=== PATIENT | male | born 1965 | race Caucasian/White ===

== ENCOUNTER 2024-08-06 14:42 | Emergency (ER) | payer OTHER, SELFPAY ==
[2024-08-06] VITALS (18 sets, daily range): BP systolic 122–153; BP diastolic 82–95; PULSE 87–113; RESP 12–21; TEMP 36.7; O2SAT 92–99
--- NOTE | ~2024-08-06 | XR_ITS ---
XR chest 2V DATE: 08/06/2024 15:00 INDICATION: Chest pain, palpitations TECHNIQUE: PA and lateral views COMPARISON: None FINDINGS: Normal heart size. No hilar or mediastinal enlargement. Aortic arch calcification. No pulmo nary infiltrate or consolidation, pleural effusion or pulmonary vascular congestion or pneumothorax. Included skeletal structures are unremarkable. IMPRESSION: No active cardiopulmonary disease Aortic atherosclerosis Reviewed, dictated and finalized at location A.
--- NOTE | 2024-08-06 14:48 | ECG_ITS ---
Test Date: 2024-08-06 14:50:45 Measurements Intervals [place] Rate: 106 P: 22 MA: 153 QRS: 41 QRSD: 88 T: 42 QT: 330 QTc: 439 Interpretive Statements SINUS TACHYCARDIA NONSPECIFIC ST-T WAVE ABNORMALITY- DIFFUSE LEADS BASELINE ARTIFACT- II, III ABNORMAL ECG No previous ECG available for comparison Electronically Signed On 08-06-2024 20:35:25 CDT by Celso Renner D.O.
--- NOTE | 2024-08-06 15:20 | ED.ARRPALP ---
HPI - Arrhythmia/Palpitations General Chief Complaint: Arrhythmia/Palpitations Stated Complaint: palpatations Time Seen by Provider: 08/06/24 14:50 History of Present Illness HPI narrative: Patient is a 59-year-old male who reports to the ER after feeling as though his heart rate was irregular. He reports he cut the grass earlier today. Patient reports he started feeling an intermittent irregular heart rate during that time. He went inside, took a shower, and laid down for a nap. Patient reports he continued to feel the irregular heart rate while resting and when he got up. Patient reports has not had their regular heart rate for the past 20 minutes. He reports a history of hyperlipidemia and back pain. Patient denies chest pain, shortness of breath, or other signs of illness. Related Data Allergies Allergy/AdvReac Type Severity Reaction Status Date / Time No Known Allergies Allergy Verified 08/06/24 15:36 Review of Systems Review of Systems: All systems reviewed & are unremarkable except as noted in HPI and below Exam Narrative: GENERAL: Well appearing, well-nourished, non-toxic, in no acute distress. HEAD: Normocephalic, atraumatic. NECK: Supple. No adenopathy, no masses. RESPIRATORY: Airway patent, respirations nonlabored. Clear to auscultation bilaterally, no rales, rhonchi, wheezing. CARDIOVASCULAR: Regular rate and rhythm without murmurs, rubs, or gallops. Peripheral pulses 2+ and equal bilaterally. ABDOMINAL: Soft, nontender, nondistended, no hepatosplenomegaly. Normoactive BS. MUSCULOSKELETAL: Moves all extremities. Strength/ROM intact without gross deformities. SKIN: Warm, dry, normal color. No rashes. NEURO: A&O X3. Speech clear. Cranial nerves II-XII grossly intact. Steady gait. No ataxic movements. PSYCHIATRIC: Appropriate mood and affect. Normal interaction. Course Vital Signs Vital signs: Vital Signs Temperature 36.7 C 08/06/24 14:56 Pulse Rate 107 H 08/06/24 14:56 Respiratory Rate 17 08/06/24 14:56 Blood Pressure 153/82 H 08/06/24 14:56 Pulse Oximetry 96 08/06/24 14:56 Oxygen Delivery Room Air 08/06/24 14:56 Temperature 36.7 C 08/06/24 14:56 Pulse Rate 87 08/06/24 17:26 Respiratory Rate 19 08/06/24 17:26 Blood Pressure 122/89 08/06/24 17:26 Pulse Oximetry 99 08/06/24 17:26 Oxygen Delivery Room Air 08/06/24 15:00 MDM - Arrhythmia/Palpitations MDM Narrative Medical decision making narrative: Patient is a 59-year-old male who reports to the ER after feeling as though his heart rate was irregular. He reports he cut the grass earlier today. Patient reports he started feeling an intermittent irregular heart rate during that time. He went inside, took a shower, and laid down for a nap. Patient reports he continued to feel the irregular heart rate while resting and when he got up. Patient reports has not had their regular heart rate for the past 20 minutes. He reports a history of hyperlipidemia and back pain. Patient denies chest pain, shortness of breath, or other signs of illness. Patient's physical examination is unremarkable. His blood work indicates patient is mildly dehydrated. Will give him 1L normal saline IV bolus and reexamine patient after intervention. Differential Diagnosis Differential diagnosis: Likely palpitations, artial fibrillation, artial flutter and supraventricular tachycardia Lab Data Attestation: I reviewed the patient's lab results. 08/06/24 15:36 08/06/24 15:36 Labs: Lab Results 08/06/24 08/06/24 08/06/24 Range/Units 15:36 17:17 18:03 WBC 12.6 H (4.5-10.0) K/mm3 RBC 5.12 (4.6-6.20) M/mm3 Hgb 15.4 (14.0-18.0) g/dL Hct 44.6 (42.0-52.0) % MCV 87.1 (80-100) fl MCH 30.1 (26-34) pg MCHC 34.5 (32-36) g/dl RDW 13.3 (11.5-14.5) % Plt Count 208 (150-375) k/mm3 MPV 10.9 H (7.4-10.4) fl Immature Gran % (Auto) 0.3 (0-0.5) % Neut % (Auto) 68.4
[2024-08-06 15:43] LABS: Basophils Absolute Auto 0.1 K/mm3 (0.0-0.1); Basophils Percent Auto 0.7 % (0.2-1.2); Eosinophils Absolute Auto 0.2 K/mm3 (0-0.3); Eosinophils Percent Auto 1.7 % (0-4.4); Hematocrit 44.6 % (42.0-52.0); Hemoglobin 15.4 g/dL (14.0-18.0); Immature Granulocyte Absolute 0.04 K/mm3 (0.00-0.031); Immature Granulocyte Percent A 0.3 % (0-0.5); Lymphocytes Absolute Auto 2.74 K/mm3 (0.9-3.2); Lymphocytes Percent Auto 21.7 % (18.3-44.2); Mean Corpuscular HGB Conc 34.5 g/dl (32-36); Mean Corpuscular Hemoglobin 30.1 pg (26-34); Mean Corpuscular Volume 87.1 fl (80-100); Mean Platelet Volume 10.9 fl (7.4-10.4); Monocytes Absolute Auto 0.9 K/mm3 (0.1-0.6); Monocytes Percent Auto 7.2 % (2.6-8.5); Neutrophils Absolute Auto 8.7 K/mm3 (1.3-6.7); Neutrophils Percent Auto 68.4 % (45.5-73.1); Platelet Count Result 208 k/mm3 (150-375); Red Blood Count 5.12 M/mm3 (4.6-6.20); Red Cell Distribution Width 13.3 % (11.5-14.5); White Blood Count 12.6 K/mm3 (4.5-10.0)
[2024-08-06 15:53] LABS: Prothrombin Time 13.6 Seconds (11.1-14.7)
[2024-08-06 15:54] LABS: Partial Thromboplastin Time 26.1 Seconds (22.3-36.8)
[2024-08-06 15:55] LABS: Alanine Aminotransferase 35 U/L (6-50); Albumin Level 4.5 g/dL (3.5-5.1); Alkaline Phosphatase 80 U/L (38-126); Anion Gap 11 mmol/L (4-12); Aspartate Amino Transferase 36 U/L (17-59); Bilirubin,Total 0.7 mg/dL (0.2-1.3); Blood Urea Nitrogen 21 mg/dL (9-20); Calcium 9.4 mg/dL (8.4-10.2); Carbon Dioxide 26 mmol/L (22-30); Chloride 100 mmol/L (98-107); Estimated CRCL calculation 51 ml/min; Estimated Glomerular Filt Rate 52; Glucose 110 mg/dL (65-110); Lipase 124 U/L (23-300); Potassium 3.6 mmol/L (3.4-5.0); Sodium 137 mmol/L (137-145)
[2024-08-06 16:06] LABS: Troponin I < 0.012 ng/mL (0.000-0.034)
[2024-08-06] MEDS: SODIUM CHLORIDE 0.9% IV 1,000 ML 999 ML IV CONT (17:22)
[2024-08-06 17:28] LABS: Add Urine Microscopic? YES; Appearance Urine Cloudy (Clear); Bacteria Urine None Seen /hpf; Bilirubin Urine Negative (Negative); Blood Urine Negative (Negative); Color Urine Yellow (Yellow); Glucose Urine UA Negative (Negative); Ketones Urine Negative (Negative); Leukocyte Esterase Ur Negative LEU/UL (Negative); Nitrate Urine Negative (Negative); Non Pathogenic Casts 0-2; Protein Urine Negative (Negative); RBC Urine 0-2 /hpf (0-2); Specific Grav Ur 1.021 (1.001-1.035); Squamous Epithelial Cell Urine None Seen /hpf (Few); Urobilinogen Urine 0.2 mg/dL (<2.0); WBC Urine 0-5 /hpf (0-3)
[2024-08-06 18:32] LABS: Troponin I < 0.012 ng/mL (0.000-0.034)
== END 2024-08-06 18:51 | disposition home or self-care (01) ==
PROVIDERS: Emergency Medicine; Emergency Provider Registered Nurse
DX: R00.2 Palpitations (principal); E86.0 Dehydration; I70.0 Atherosclerosis of aorta; R00.0 Tachycardia, unspecified; R94.31 Abnormal electrocardiogram [ECG] [EKG]
CPT/HCPCS: 36415; 71046; 80053; 81001; 83690; 84443; 84484; 85025; 85610; 85730; 93005; 96360; 99284; J7030